=== PATIENT | male | born 1945 | race Caucasian/White ===

== ENCOUNTER 2016-07-05 06:48 | Day surgery (SDC) | payer MEDICARE, OTHER ==
[~2016-07-05 06:48] MED LIST: KETOROLAC TROMETHAMINE 0.45% 4 DROP/0.4 ML DROPERETTE OD PRN
[2016-07-05] MEDS ORDERED: BESIFLOXACIN HCL 0.6% OPH SUSP 5 ML BOTTLE ONE (07:14)
[2016-07-05] MEDS: TROPICAMIDE 1% OPH SOLN 3 ML OD PRN ×3 (07:24→07:45)
[2016-07-05] MEDS: TETRACAINE HCL 0.5% OPH SOLN 2 ML OD PRN ×4 (07:24→07:53)
[2016-07-05] MEDS: BESIFLOXACIN HCL 0.6% OPH SUSP 5 ML BOTTLE OD PRN ×4 (07:25→08:21)
[2016-07-05] MEDS: CYCLOPENTOLATE 0.2%/PHENYLEPHRINE 1% OPH SOLN 2 ML OD PRN ×3 (07:25→07:45)
[2016-07-05] MEDS ORDERED: FENTANYL CITRATE INJ/PF 100 MCG/2 ML AMPUL ONE (07:45)
[2016-07-05] MEDS ORDERED: MIDAZOLAM 2 MG/2 ML INJ ONE (07:45)
[2016-07-05] MEDS: LIDOCAINE 1% INJ-PF (10 MG/ML) 30 ML SDV ONE ×2 (08:03)
[2016-07-05] MEDS: CHONDR SU A NA/HYALUR INTRAOC KIT (SURGICARE) ONE ×2 (08:03)
[2016-07-05] MEDS: EPINEPHRINE INJ/PF 1 MG/1 ML AMPULE ONE ×2 (08:03)
[2016-07-05] MEDS ORDERED: CHONDR SU A NA/HYALUR SOD 0.5 ML DISP.SYRIN ONE (08:14)
--- NOTE | 2016-07-06 07:23 | [facility] OPERATIVE REPORT E ---
[facility] NAME: JULIANNE HICKS AGE: 70Y DATE OF SURGERY: 07/05/2016 ROOM: PREOPERATIVE DIAGNOSIS: CATARACT, RIGHT EYE. POSTOPERATIVE DIAGNOSIS: CATARACT, RIGHT EYE. OPERATION: Cataract extraction with intraocular lens implant of the right eye. SURGEON: ANIKET HO M.D. ANESTHESIA: Topical. COMPLICATIONS: Iris prolapse. PROCEDURE: After obtaining appropriate consent, the patient's right eye was prepped and draped in sterile fashion as well as the surgeon in a sterile manner and cataract surgery was started. First a paracentesis blade was used to make a small side-port incision. Viscoelastic was used to inflate the anterior chamber. Next a 2.4 mm incision was made with the paracentesis blade. A continuous capsulorrhexis incision was made using a cystotome and Utrata forceps. Following this hydrodissection was carried out to make the lens fully loose and mobile and it was rotated 90 degrees. Following this, a skjmeg-mmu-nbwoltr technique was used to phacoemulsify the lens with a CDE of 9.46. The remaining cortex was removed with irrigation/aspiration. Provisc was instilled into the capsular bag to inflate the bag. A SN60WF, 20.5 diopter lens was placed. The remaining viscoelastic material was removed with irrigation/aspiration. Following this, a 10-0 nylon suture was used to close the incision and it was found to be watertight. Vigamox was instilled in the eye and a protective shield was placed over the eye. The patient returned to the postoperative recovery in stable condition. At one point, the iris had become very floppy and had prolapsed out of the incision. This was re-deposited using pressure on the natural lens and re-depositing it with viscoelastic. This did happen just one time and was not an issue proceeding with the case. Due to this, I will most likely use a omidria and potentially a Malyugin ring for his next eye. DICTATING PHYSICIAN: ANIKET HO M.D. [id number] PHY#: [id number] ID: [id number] JOB#: [id number] ACCT: [id number] cc:ANIKET HO M.D. > [facility]
--- NOTE | 2016-07-06 07:24 | [facility] DISCHARGE SUMMARY E ---
[facility] Discharge Summary NAME: JULIANNE HICKS AGE: 70Y ADMITTED: 07/05/2016 DISCHARGED: 07/05/2016 HISTORY: This is a 70-year-old male who underwent cataract extraction of the right eye. DIAGNOSIS: Cataract right eye. He underwent surgery because he was having difficulty seeing road signs and words on the TV. He should be on a regular diet. No bending at his waist. No heavy lifting. He is to use his Besivance, Ilevro, and Durezol at 3 p.m. and 8 p.m. and sleep with a rigid shield and I will see him for his one day postoperative tomorrow. DICTATING PHYSICIAN: ANIKET HO M.D. [id number] PHY#: [id number] ID: [id number] JOB#: [id number] ACCT: [id number] cc:ANIKET HO M.D. >
== END 2016-07-05 09:12 | disposition home or self-care (01) ==
LOC: SC 06:48
PROVIDERS: ATTEND Internal Medicine
PROC: 08RJ3JZ Replacement of Right Lens with Synthetic Substitute, Percutaneous Approach (ICD-10-PCS; principal; 2016-07-05 08:00)
DX: H25.13 Age-related nuclear cataract, bilateral (principal); H35.3131 Nonexudative age-related macular degeneration, bilateral, early dry stage; R01.1 Cardiac murmur, unspecified; J30.2 Other seasonal allergic rhinitis; Z87.891 Personal history of nicotine dependence; Z79.899 Other long term (current) drug therapy; Z79.1 Long term (current) use of non-steroidal anti-inflammatories (NSAID); Z86.718 Personal history of other venous thrombosis and embolism
CPT/HCPCS: 66984; V2632; J2250; J3490 ×3; A9270 ×2; J0171; J3010; 142

== ENCOUNTER 2016-08-02 06:22 | Day surgery (SDC) | payer MEDICARE, OTHER ==
[~2016-08-02 06:22] MED LIST changes: +BUPIVACAINE HCL 0.75% INJ/PF (7.5 MG/1 ML) 10 ML SDV OS PRN; -KETOROLAC TROMETHAMINE 0.45% 4 DROP/0.4 ML DROPERETTE OD PRN; +KETOROLAC TROMETHAMINE 0.45% 4 DROP/0.4 ML DROPERETTE OS PRN
[2016-08-02] MEDS: CYCLOPENTOLATE 0.2%/PHENYLEPHRINE 1% OPH SOLN 2 ML OS PRN ×3 (06:48→07:08)
[2016-08-02] MEDS: TROPICAMIDE 1% OPH SOLN 3 ML OS PRN ×4 (06:48→07:08)
[2016-08-02] MEDS: BESIFLOXACIN HCL 0.6% OPH SUSP 5 ML BOTTLE OS PRN ×4 (06:48→07:57)
[2016-08-02] MEDS ORDERED: MIDAZOLAM 2 MG/2 ML INJ ONE (07:02)
[2016-08-02] MEDS: TETRACAINE HCL 0.5% OPH SOLN 2 ML OS PRN ×2 (07:08→07:29)
[2016-08-02] MEDS ORDERED: EPINEPHRINE INJ/PF 1 MG/1 ML AMPULE ONE (07:12)
[2016-08-02] MEDS ORDERED: LIDOCAINE 1% INJ-PF (10 MG/ML) 30 ML SDV ONE (07:13)
[2016-08-02] MEDS ORDERED: CHONDR SU A NA/HYALUR INTRAOC KIT (SURGICARE) ONE (07:13)
[2016-08-02] MEDS ORDERED: PHENYLEPHRINE/KETOROLAC 1%-0.3% 4 ML VIAL ONE (07:15)
--- NOTE | 2016-08-05 20:20 | [facility] DISCHARGE SUMMARY E ---
[facility] Discharge Summary NAME: JULIANNE HICKS AGE: 70Y ADMITTED: 08/02/2016 DISCHARGED: 08/02/2016 HISTORY OF PRESENT ILLNESS AND HOSPITAL COURSE: This is a 70-year-old male who underwent cataract extraction of the left eye. DIAGNOSIS: Cataract, left eye. HOSPITAL COURSE: He underwent surgery because he was having difficulty with glare from headlights making it difficult to drive at night. DISCHARGE INSTRUCTIONS: 1. He should be on a regular diet. 2. No bending at his waist and no heavy lifting. 3. He should use his Besivance, Ilevro, and Durezol. 4. He should see me for his one-day postoperative visit. DICTATING PHYSICIAN: ANIKET HO M.D. [id number] [id number] PHY#: [id number] ID: [id number] JOB#: [id number] ACCT: [id number] cc:ANIKET HO M.D. >
--- NOTE | 2016-08-05 20:23 | [facility] OPERATIVE REPORT E ---
PREOPERATIVE DIAGNOSIS: CATARACT, LEFT EYE. POSTOPERATIVE DIAGNOSIS: CATARACT, LEFT EYE. OPERATION: Cataract extraction with intraocular lens implant of the left eye. SURGEON: ANIKET HO M.D. ANESTHESIA: Topical. PROCEDURE: After obtaining appropriate consent, the patient's @ eye was prepped and draped in sterile fashion as well as the surgeon in a sterile manner and cataract surgery was started. First a paracentesis blade was used to make a small side-port incision. Viscoelastic was used to inflate the anterior chamber. Next a 2.4 mm incision was made with the paracentesis blade. A continuous capsulorrhexis incision was made using a cystotome and Utrata forceps. Following this hydrodissection was carried out to make the lens fully loose and mobile and it was rotated 90 degrees. Following this, a clcxtl-ysb-wnpxkow technique was used to phacoemulsify the lens with a CDE of 7.61. The remaining cortex was removed with irrigation/aspiration. Provisc was instilled into the capsular bag to inflate the bag. A SN60WF, 21.0 diopter lens was placed. The remaining viscoelastic material was removed with irrigation/aspiration. Following this, a 10-0 nylon suture was used to close the incision and it was found to be watertight. Vigamox was instilled in the eye and a protective shield was placed over the eye. The patient returned to the postoperative recovery in stable condition. DICTATING PHYSICIAN: ANIKET HO M.D. 1272M DT: 0000 PHY#: [id number] ID: [id number] JOB#: [id number] ACCT: [id number] cc:ANIKET HO M.D. >
== END 2016-08-02 08:53 | disposition home or self-care (01) ==
LOC: SC 06:22
PROVIDERS: ATTEND Internal Medicine
PROC: 08RK3JZ Replacement of Left Lens with Synthetic Substitute, Percutaneous Approach (ICD-10-PCS; principal; 2016-08-02 07:30)
DX: H25.12 Age-related nuclear cataract, left eye (principal); Z96.1 Presence of intraocular lens; H40.89 Other specified glaucoma; Z79.01 Long term (current) use of anticoagulants; Z86.718 Personal history of other venous thrombosis and embolism
CPT/HCPCS: 66984; V2632; J2250; J3490 ×2; A9270; C9447; 142; J0171